=== PATIENT | female | born 1970 | race Caucasian/White ===

== ENCOUNTER → 2024-08-02 07:29 | Outpatient (REF) | payer BC, SELFPAY | LOC: RCS 07:29 | PROVIDERS: ATTENDING PHYSICIAN Nurse Practitioner Family | DX: R55 Syncope and collapse (principal); Z91.018 Allergy to other foods | CPT/HCPCS: 93005; 93225; 93226 ==

== ENCOUNTER → 2024-08-14 16:41 | Outpatient (REF) | payer BC, SELFPAY | LOC: RCS 16:41 | PROVIDERS: ATTENDING PHYSICIAN Nurse Practitioner Family | DX: R55 Syncope and collapse (principal) | CPT/HCPCS: 93306 ==

== ENCOUNTER → 2024-08-21 15:08 | Outpatient (REF) | payer BC, SELFPAY | LOC: WDC 15:08 | PROVIDERS: ATTENDING PHYSICIAN Nurse Practitioner Family | DX: Z12.31 Encounter for screening mammogram for malignant neoplasm of breast (principal) | CPT/HCPCS: 77063; 77067 ==

== ENCOUNTER → 2025-03-19 15:57 | Outpatient (REF) | payer BC, SELFPAY ==
[2025-03-19 16:41] LABS: Hematocrit 34.5 % (37.0-47.0); Hemoglobin 11.2 g/dL (12.0-16.0); Mean Corp Hgb Conc. 32.5 g/dL (33.0-37.0); Mean Corpuscular Volume 80.4 fL (81.0-99.0); Nucleated Red Blood Cells % 0 %; Platelet Count 397 10^3/uL (130-400); Red Cell Dist. Width 14.7 % (11.5-14.5)
[2025-03-19 17:16] LABS: ALT (SGPT) 15 U/L (0-35); AST (SGOT) 18 U/L (14-36); Albumin 4.5 g/dl (3.5-5.0); Alkaline Phosphatase 66 U/L (38-126); Amylase 68 U/L (30-110); Blood Urea Nitrogen 8 mg/dl (7-17); Calcium 9.5 mg/dl (8.4-10.2); Carbon Dioxide 30 mmol/L (22-30); Chloride 102 mmol/L (98-107); Glucose 96 mg/dl (70-99); Lipase 166 U/L (23-300); Potassium 4.3 mmol/L (3.5-5.1); Sodium 137 mmol/L (135-145); Total Protein 7.6 g/dl (6.3-8.2); eGFR > 60.00
== END ==
LOC: REG 15:57
PROVIDERS: ATTENDING PHYSICIAN Nurse Practitioner Family
DX: R10.12 Left upper quadrant pain (principal)
CPT/HCPCS: 36415; 80053; 82150; 83690; 85025

== ENCOUNTER → 2025-03-28 15:11 | Outpatient (REF) | payer BC, SELFPAY | LOC: RAD 15:11 | PROVIDERS: ATTENDING PHYSICIAN Nurse Practitioner Family | DX: R10.12 Left upper quadrant pain (principal) | CPT/HCPCS: 74160; Q9967 ==

== ENCOUNTER → 2025-06-06 07:43 | Outpatient (REF) | payer BC, SELFPAY | LOC: RAD 07:43 | PROVIDERS: ATTENDING PHYSICIAN Nurse Practitioner Family | DX: S22.088A Other fracture of T11-T12 vertebra, initial encounter for closed fracture (principal) | CPT/HCPCS: 77080 ==